=== PATIENT | male | born 1965 | race Caucasian/White ===

== ENCOUNTER 2018-02-14 12:58 | Inpatient (IN) | payer OTHER ==
[2018-02-14] MEDS ORDERED: IOPAMIDOL (ISOVUE-300) 100 ML BTL ONE (13:08)
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
[2018-02-14] MEDS ORDERED: NS 1,000 ML IV ONE (13:20)
[2018-02-14] MEDS ORDERED: HYDROmorphONE/DILAUDID 2 MG/ML INJ IVP ONE ×2 (13:20→15:45)
[2018-02-14 13:46] LABS: CREATINE KINASE 525 IU/L (0-224)
[2018-02-14] MEDS ORDERED: HYDROmorphONE/DILAUDID 1 MG/ML INJ ONE ×2 (13:46→15:45)
[2018-02-14 14:23] LABS: INR > 16.20 (0.83-1.16); PROTIME(PATIENT) > 120.0 SEC (12.0-15.0)
[2018-02-14] MEDS ORDERED: NALOXONE HCL 0.4 MG/ML INJ IVP PRN (14:32)
[2018-02-14] MEDS ORDERED: ONDANSETRON 4 MG/2 ML VIAL IVP PRN (14:32)
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
[2018-02-14 14:55] LABS: PLATELET COUNT 306 10^3/uL (150-400)
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
[2018-02-14 17:03] LABS: INR 1.05 (0.83-1.16); PROTIME(PATIENT) 13.9 SEC (12.0-15.0)
[2018-02-14] MEDS: HYDROmorphONE/DILAUDID 1 MG/ML INJ IVP PRN ×2 (18:17→21:55)
[2018-02-14 19:37] LABS: PLATELET COUNT 258 10^3/uL (150-400)
--- NOTE | 2018-02-14 19:58 | CPEKG ---
Test Reason : OPEN Blood Pressure : / mmHG Vent. Rate : 107 BPM Atrial Rate : 107 BPM P-R Int : 137 ms QRS Dur : 087 ms QT Int : 358 ms P-R-T Axes : 045 034 034 degrees QTc Int : 478 ms Sinus tachycardia Low voltage, extremity leads Borderline prolonged QT interval Confirmed by Jensie Salcedo ([id number]) on 02/14/2018 7:58:26 PM Referred By: Confirmed By:Jenise Salcedo
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
--- NOTE | 2018-02-14 23:17 | TRAUMAPN ---
Trauma Progress Note Assessment/Plan: Repeat CBC chemistry some troponin demonstrated elevation in his troponin from initial evaluation at presentation of 0.023 to 0.122. Will get Medicine consult to evaluate or determine if cardiology consult is necessary. EKG reviewed from before shows no myocardial injury. This may be a result blunt chest trauma but is worthy of investigation. Objective: Vital Signs Temp Pulse Resp BP Pulse Ox 37.5 C 111 H 19 106/77 94 02/14/18 20:00 02/14/18 23:00 02/14/18 23:00 02/14/18 23:00 02/14/18 23:00 Laboratory Results 02/14/18 19:15 02/14/18 19:15 02/13/18 02/14/18 02/15/18 05:59 05:59 05:59 Intake Total 1312 Output Total 275 Balance 1037 PT 13.9 SEC (12.0-15.0) 02/14/18 16:40 INR 1.05 (0.83-1.16) 02/14/18 16:40
[2018-02-15] MEDS: HYDROmorphONE/DILAUDID 1 MG/ML INJ IVP PRN ×7 (00:10→20:10)
[2018-02-15] MEDS: LR 1,000 ML IV SCH ×3 (00:10→20:10)
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
--- NOTE | 2018-02-15 09:39 | HOSPPROG ---
Hospitalist Progress Note Assessment/Plan: Elevated troponin - peaked at 0.1, now trending down. Doubt ACS. Pt is CP free. His only cardiac risk factor is hyperlipidemia. No htn, tobacco use, DM or family hx of PHD. Suspect strain vs elevation 2/2 trauma. No need for further cardiac testing inpt. -outpt risk stratification could be considered Multiple traumatic fractures - Care per trauma team, will require surgery for pelvic fracture Minimal parietal SAH - No neurologic deficits. -NSG following Full code Dispo - cont inpt Medicine will continue to follow Subjective: Pt doing ok, pain is controlled. Denies bailey, vision changes, nausea , vomiting, chest pain or SOB. Some pelvic pain if he moves. Objective: Vital Signs Temp Pulse Resp BP Pulse Ox 37.3 C 100 19 127/83 H 94 02/15/18 07:00 02/15/18 09:00 02/15/18 09:00 02/15/18 09:00 02/15/18 09:00 Laboratory Results 02/15/18 04:15 02/15/18 04:15 02/14/18 02/15/18 02/16/18 05:59 05:59 05:59 Intake Total 3468 Output Total 940 Balance 2528 PT 13.9 SEC (12.0-15.0) 02/14/18 16:40 INR 1.05 (0.83-1.16) 02/14/18 16:40 - Physical Exam Constitutional: no apparent distress Eyes: PERRL Ears, Nose, Mouth, Throat: moist mucous membranes Cardiovascular: regular rate and rhythym Respiratory: no respiratory distress Gastrointestinal: normoactive bowel sounds, soft, non-tender abdomen Skin: warm Neurologic: AAOx3 Psychiatric: interacting appropriately ICD10 Worksheet Patient Problems: Problems Problem Status Onset Elevated troponin Acute Laceration of scalp Acute Pelvic fracture Acute Subarachnoid bleed Acute
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
[2018-02-15] MEDS ORDERED: RANITIDINE HCL 150 MG/10 ML UDCUP PO SCH (10:45)
[2018-02-15] MEDS ORDERED: RANITIDINE 50 MG/2 ML VIAL IVP SCH (10:45)
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
[2018-02-15] MEDS: FAMOTIDINE 20 MG/NACL 50 ML IV SCH ×2 (12:54→20:10)
--- NOTE | 2018-02-15 16:43 | PDCONSULT ---
Shoe Polisher Note: Patient's chart reviewed, and plan of care discussed with Dr. Carter and RN. At this time, there is no plan for a scheduled surgery on Friday. Dr. Carter will coordinate surgical planning for later in the week. Jerry
[2018-02-15] MEDS: ACETAMINOPHEN 325 MG TAB PO PRN (20:09)
[2018-02-16] MEDS: ACETAMINOPHEN 325 MG TAB PO PRN ×2 (03:49→20:12)
[2018-02-16] MEDS: LR 1,000 ML IV SCH ×2 (05:42→13:50)
[2018-02-16] MEDS ORDERED: MAGNESIUM HYDROXIDE 30 ML UDCUP PO PRN (08:06)
[2018-02-16] MEDS ORDERED: POLYETHYLENE GLYCOL 3350 17 GM PKT PO PRN (08:06)
[2018-02-16] MEDS ORDERED: LACTULOSE 20 GM/30 ML UDCUP PO PRN (08:06)
[2018-02-16] MEDS: FAMOTIDINE 20 MG/NACL 50 ML IV SCH ×2 (08:52→20:14)
[2018-02-16] MEDS: SENNOSIDES/DOCUSATE SODIUM TAB PO SCH ×2 (08:52→20:12)
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
[2018-02-16] MEDS ORDERED: NALOXONE HCL 0.4 MG/ML INJ IVP PRN (17:01)
[2018-02-16] MEDS: morphINE PCA 30 MG/30 ML PCA IV PRN (17:05)
--- NOTE | 2018-02-17 08:19 | SOAPPROG ---
SOAP Progress Note Assessment/Plan: Assessment: pt with complex pelvic fx/ afebrile/ vs stable/ please refer to my PAs note today dr burleson to see for orif Plan:pelvic ORIF on friday02/17/18 08:17 Objective: Vital Signs Temp Pulse Resp BP Pulse Ox 37.1 C 105 H 14 143/82 H 95 02/17/18 00:00 02/17/18 06:00 02/17/18 06:00 02/17/18 06:00 02/17/18 06:00 Laboratory Results 02/16/18 18:35 02/15/18 04:15 02/16/18 02/17/18 02/18/18 05:59 05:59 05:59 Intake Total 3489 3427 Output Total 1650 3200 Balance 1839 227 PT 13.9 SEC (12.0-15.0) 02/14/18 16:40 INR 1.05 (0.83-1.16) 02/14/18 16:40 ICD10 Worksheet Patient Problems: Problems Problem Status Onset Elevated troponin Acute Laceration of scalp Acute Pelvic fracture Acute Subarachnoid bleed Acute
[2018-02-17] MEDS: FAMOTIDINE 20 MG/NACL 50 ML IV SCH ×2 (08:43→20:49)
[2018-02-17] MEDS: SENNOSIDES/DOCUSATE SODIUM TAB PO SCH ×2 (08:44→20:49)
[2018-02-17] MEDS ORDERED: MAGNESIUM CITRATE 300 ML BOTTLE PO ONE (09:56)
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
[2018-02-17 10:02] LABS: PLATELET COUNT 169 10^3/uL (150-400)
[2018-02-17] MEDS ORDERED: METHYLNALTREXONE BROMIDE 12 MG/0.6 ML INJ SC ONE (10:08)
[2018-02-17 10:29] LABS: INR 1.1 (0.83-1.16); PROTIME(PATIENT) 14.4 SEC (12.0-15.0)
--- NOTE | 2018-02-17 13:08 | SOAPPROG ---
WILSON Progress Note Assessment/Plan: Assessment: Plan: Subjective: stattes he has pain when movinh leg or rolling grossly NVI in foot compression test not performed CT reveals anterior fractures outside the acetabulum but posterior fractures are dsiplaced and need to be fixed plan for ORIF of posterior fractures tomorrow NPO after MN Objective: Vital Signs Temp Pulse Resp BP Pulse Ox 36.8 C 103 H 17 130/92 H 97 02/17/18 12:00 02/17/18 12:00 02/17/18 12:00 02/17/18 12:00 02/17/18 12:00 Laboratory Results 02/17/18 09:55 02/17/18 09:55 02/16/18 02/17/18 02/18/18 05:59 05:59 05:59 Intake Total 3489 3427 Output Total 1650 3200 Balance 1839 227 PT 14.4 SEC (12.0-15.0) 02/17/18 09:55 INR 1.10 (0.83-1.16) 02/17/18 09:55 ICD10 Worksheet Patient Problems: Problems Problem Status Onset Elevated troponin Acute Laceration of scalp Acute Pelvic fracture Acute Subarachnoid bleed Acute
--- NOTE | 2018-02-17 13:10 | GPROG ---
DATE OF SERVICE: 02/17/2018 I saw the patient today on my afternoon rounds really just to touch base to make sure the plan was in place. He is actually being visited by Dr. Margarita Carter, who is explaining the surgery and expected po stop course at length with the patient. At this point, I will personally sign off and defer all care to Dr. Margarita Carter and his care team. If I can help in any way, please do not hesitate to contact me. /[id number]/MODL
--- NOTE | 2018-02-17 13:33 | TRAUMAPN ---
Trauma Progress Note Assessment/Plan: PAD#3 02/17/2018 Assessment: C/o bloating and no stool yet but otherwise set for surgery Significant time spent with family answering questions Plan: oral and rectal meds to facilitate bowel movement planned. Subjective: " I can't move my bowels" Objective: Vital Signs Temp Pulse Resp BP Pulse Ox 36.8 C 103 H 17 130/92 H 97 02/17/18 12:00 02/17/18 12:00 02/17/18 12:00 02/17/18 12:00 02/17/18 12:00 Laboratory Results 02/17/18 09:55 02/17/18 09:55 02/16/18 02/17/18 02/18/18 05:59 05:59 05:59 Intake Total 3489 3427 Output Total 1650 3200 Balance 1839 227 PT 14.4 SEC (12.0-15.0) 02/17/18 09:55 INR 1.10 (0.83-1.16) 02/17/18 09:55 Physical Exam - Physical Exam General Appearance: WD/WN, alert, mild distress Neck: non-tender, full range of motion, supple Respiratory: chest non-tender, lungs clear, normal breath sounds Cardiac/Chest: regular rate, rhythm Abdomen: normal bowel sounds, distended Male Genitalia: deferred Rectal: deferred Skin: normal color, warm/dry Neuro/Psych: alert, normal mood/affect, oriented x 3 Time Spent w/Patient (minutes): 35
[2018-02-17] MEDS: BISACODYL 10 MG SUPP PR PRN (14:07)
[2018-02-17] MEDS: LR 1,000 ML IV SCH (20:49)
[2018-02-18] MEDS: BISACODYL 10 MG SUPP PR PRN (00:15)
[2018-02-18] MEDS: morphINE PCA 30 MG/30 ML PCA IV PRN ×2 (01:30→22:21)
[2018-02-18] MEDS: LR 1,000 ML IV SCH ×2 (05:36→19:56)
[2018-02-18] MEDS ORDERED: BUPIVACAINE/EPI 0.5% 30 ML SDV ONE (07:44)
[2018-02-18] MEDS ORDERED: BACITRACIN 50,000 UNITS/10 ML SYR IRR ONE (07:44)
[2018-02-18] MEDS ORDERED: POLYMYXIN B SULFATE 500,000 UNIT/10 ML SYR IRR ONE (07:44)
[2018-02-18] MEDS: FAMOTIDINE 20 MG/NACL 50 ML IV SCH ×2 (08:16→19:59)
[2018-02-18] MEDS: SENNOSIDES/DOCUSATE SODIUM TAB PO SCH ×2 (08:27→19:59)
[2018-02-18 08:31] LABS: INR 1.12 (0.83-1.16); PROTIME(PATIENT) 14.6 SEC (12.0-15.0)
[2018-02-18] MEDS ORDERED: PROPOFOL/EMULSION 500 MG/50 ML BOTTLE IV ONE ×2 (10:21→12:47)
[2018-02-18] MEDS ORDERED: DEXAMETHASONE 4 MG/ML VIAL ONE (10:24)
[2018-02-18] MEDS ORDERED: THROMBIN (BOVINE) 5,000 UNIT VIAL TP ONE (10:38)
[2018-02-18] MEDS ORDERED: CALCIUM CHLORIDE 1 GM/10 ML INJ ONE (10:38)
[2018-02-18] MEDS ORDERED: ALBUMIN 5% 250 ML BOTTLE IV ONE (11:18)
[2018-02-18] MEDS ORDERED: POTASSIUM Cl (KCl) 10 MEQ/100 ML BAG IV ONE (11:25)
[2018-02-18] MEDS ORDERED: CLINDAMYCIN 900 MG/DEXTROSE 50 ML IV ONE (11:30)
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
[2018-02-18] MEDS ORDERED: PHENYLEPHRINE HCL 100 MCG/ML SYR ONE (12:51)
[2018-02-18] MEDS ORDERED: ROCURONIUM 100 MG/10 ML VIAL ONE (12:51)
[2018-02-18] MEDS ORDERED: HYDROmorphONE/DILAUDID 2 MG/ML INJ IVP PRN (14:16)
[2018-02-18] MEDS ORDERED: PROMETHAZINE HCL 25 MG/ML INJ IVP PRN (14:16)
[2018-02-18] MEDS ORDERED: ONDANSETRON 4 MG/2 ML VIAL IVP PRN (14:16)
[2018-02-18] MEDS ORDERED: fentaNYL 100 MCG/2 ML INJ IVP PRN (14:16)
[2018-02-18] MEDS ORDERED: NALOXONE HCL 0.4 MG/ML INJ IVP PRN (14:16)
[2018-02-18] MEDS ORDERED: ONDANSETRON 4 MG/2 ML VIAL ONE (14:17)
[2018-02-18] MEDS ORDERED: SUGAMMADEX SODIUM 200 MG/2 ML VIAL IVP ONE (14:17)
[2018-02-18] MEDS ORDERED: OXYCODONE/APAP 5/325 TAB PO PRN (15:07)
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
[2018-02-18] MEDS ORDERED: PROTOCOL POTASSIUM 1 DOSE MISC PRN (17:08)
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
[2018-02-18] MEDS ORDERED: HEPARIN 10,000 UNIT/10 ML MDV (1,000 UNIT/ML) IVP PRN (17:41)
--- NOTE | 2018-02-18 17:42 | TRAUMAPN ---
Trauma Progress Note Assessment/Plan: PAD#3 02/17/2018 Assessment: C/o bloating and no stool yet but otherwise set for surgery Significant time spent with family answering questions Plan: oral and rectal meds to facilitate bowel movement planned. PAD#4 POD#0 02/18/2018 Assessment:' Patient did well with surgery. A surveillance duplex scan shows bilateral DVT. Plan: CTA of chest to r/o asymptomatic PE CTV of abdomen and pelvis to evaluate extent of clot and size of Cava in case filter becomes necessary. will start heparin bolus/drip Subjective: no complaints post op Objective: Vital Signs Temp Pulse Resp BP Pulse Ox 37.1 C 118 H 20 131/81 H 100 02/18/18 15:56 02/18/18 17:07 02/18/18 17:07 02/18/18 17:07 02/18/18 17:07 Laboratory Results 02/18/18 16:10 02/18/18 08:10 02/17/18 02/18/18 02/19/18 05:59 05:59 05:59 Intake Total 3427 3952 2686 Output Total 3200 1250 2350 Balance 227 2702 336 PT 14.6 SEC (12.0-15.0) 02/18/18 08:10 INR 1.12 (0.83-1.16) 02/18/18 08:10 Physical Exam - Physical Exam General Appearance: WD/WN, alert, no apparent distress Respiratory: chest non-tender, lungs clear, normal breath sounds, other (no pleuritic chest pain) Cardiac/Chest: regular rate, rhythm Abdomen: normal bowel sounds, non-tender, soft, distended Male Genitalia: deferred Rectal: deferred Back: Normal inspection Skin: normal color, warm/dry Neuro/Psych: no motor/sensory deficits, alert, normal mood/affect, oriented x 3 Time Spent w/Patient (minutes): 25
[2018-02-18] MEDS ORDERED: HEPARIN 10,000 UNIT/10 ML MDV (1,000 UNIT/ML) IVP ONE (17:46)
[2018-02-18] MEDS ORDERED: IOPAMIDOL (ISOVUE 370) 100 ML BTL IV ONE (18:01)
[2018-02-18] MEDS: HEPARIN/DEXTROSE 500 ML IV SCH (18:02)
[2018-02-18 18:12] LABS: PLATELET COUNT 149 10^3/uL (150-400)
[2018-02-18 18:34] LABS: INR 1.28 (0.83-1.16); PROTIME(PATIENT) 16.2 SEC (12.0-15.0)
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
[2018-02-18] MEDS: POTASSIUM Cl (KCl) 50 ML IV SCH ×3 (21:17→22:21)
[2018-02-18] MEDS: CLINDAMYCIN 600 MG/DEXTROSE 50 ML IV SCH (21:30)
[2018-02-19] MEDS: BISACODYL 10 MG SUPP PR PRN (03:24)
[2018-02-19] MEDS: LR 1,000 ML IV SCH ×2 (03:25→04:27)
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
[2018-02-19] MEDS: CLINDAMYCIN 600 MG/DEXTROSE 50 ML IV SCH ×2 (05:05→14:05)
[2018-02-19] MEDS: HEPARIN/DEXTROSE 500 ML IV SCH ×2 (05:08→09:15)
[2018-02-19 06:27] LABS: PLATELET COUNT 169 10^3/uL (150-400)
[2018-02-19] MEDS ORDERED: METHYLNALTREXONE BROMIDE 12 MG/0.6 ML INJ SC SCH (09:00)
[2018-02-19] MEDS ORDERED: RIVAROXABAN 10 MG TAB PO SCH (09:00)
[2018-02-19] MEDS: POTASSIUM Cl (KCl) 50 ML IV SCH ×5 (09:25→21:14)
--- NOTE | 2018-02-19 09:26 | TRAUMAPN ---
Trauma Progress Note Assessment/Plan: PAD#3 02/17/2018 Assessment: C/o bloating and no stool yet but otherwise set for surgery Significant time spent with family answering questions Plan: oral and rectal meds to facilitate bowel movement planned. PAD#4 POD#0 02/18/2018 Assessment:' Patient did well with surgery. A surveillance duplex scan shows bilateral DVT. Plan: CTA of chest to r/o asymptomatic PE CTV of abdomen and pelvis to evaluate extent of clot and size of Cava in case filter becomes necessary. will start heparin bolus/drip PAD#5 POD#1 02/19/2018 Assessment: DVT/PE - Therapeutic on Heparin drip. No neurologic sequela. Oxygen requirements stable at 2lpm. hct 21.3, tachycardia @ 112 Has bilateral small PE ( most in RUL), DVT below inguinal ligament bilat, Cava acceptable size if filter becomes necessary Will slowly mobilize while clot incorporates Abdominal distention - Had enemas last PM. Still tympanitic/distended. Suspect aerophagia with narcotic bowel. need to r/o hypothyroidism ( doubt) Plan: Follow HCT and transfuse if < 20, If complications occur ( increased oxygen requirements, neurologic changes, excessive surgical site/fracture site bleeding ) will consider filter Will check TSH, will add simethicone, will check abd xray, will add mu agonist. Subjective: "I'm bloated and cant pass gas" " its uncomfortable below my left knee on the (medial) side" Objective: Vital Signs Temp Pulse Resp BP Pulse Ox 37.1 C 114 H 20 119/71 99 02/18/18 15:56 02/19/18 06:00 02/19/18 06:00 02/19/18 06:00 02/19/18 06:00 Laboratory Results 02/19/18 06:00 02/19/18 06:00 02/18/18 02/19/18 02/20/18 05:59 05:59 05:59 Intake Total 3952 5518 Output Total 1250 4950 Balance 2702 568 PT 16.2 SEC (12.0-15.0) H 02/18/18 17:48 INR 1.28 (0.83-1.16) H 02/18/18 17:48 Physical Exam - Physical Exam General Appearance: WD/WN, alert, moderate distress Neck: non-tender, full range of motion Respiratory: chest non-tender, lungs clear, normal breath sounds (limited by distended abdomen) Cardiac/Chest: regular rate, rhythm, tachycardia Abdomen: distended, other (hypoactive bowel sounds) Male Genitalia: deferred Rectal: deferred Skin: normal color, warm/dry Extremities: other (c/o pain below/medial left knee) Neuro/Psych: no motor/sensory deficits, alert, normal mood/affect, oriented x 3 Time Spent w/Patient (minutes): 35
[2018-02-19] MEDS ORDERED: FAMOTIDINE 20 MG TAB PO SCH (09:45)
[2018-02-19] MEDS: SENNOSIDES/DOCUSATE SODIUM TAB PO SCH ×2 (09:54→21:30)
[2018-02-19] MEDS: SIMETHICONE 80 MG TAB CHEW PO SCH ×4 (09:54→21:13)
[2018-02-19] MEDS: traMADol 50 MG TAB PO PRN ×2 (09:59→19:37)
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
[2018-02-19] MEDS ORDERED: LIDOCAINE 2% VISCOUS 15 ML UDCUP ONE (11:40)
[2018-02-19] MEDS ORDERED: LIDOCAINE 2% JELLY 20 ML (UROJECT) ONE (11:40)
[2018-02-19] MEDS: FAMOTIDINE 20 MG/NACL 50 ML IV SCH (11:49)
[2018-02-19] MEDS: NS W/ 20 KCl/L 1,000 ML IV SCH (12:43)
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
--- NOTE | 2018-02-19 13:55 | POSTANESTH ---
Post Anesthetic Evaluation Cardiovascular Status: Normal, Stable Respiratory Status: Tx Decrease in SpO2 Level of Consciousness/Mental Status: Can Participate in Eval Pain Control: Adequate, Prn Tx Ordered Nausea/Vomiting Control: Adequate, Prn Tx Ordered Complications Possibly Related to Anesthesia: None Noted
[2018-02-19] MEDS: ACETAMINOPHEN 500 MG TAB PO SCH ×2 (14:05→21:13)
--- NOTE | 2018-02-19 16:04 | ASMTCMCOM ---
CM Note CM Note Notes: Patient went for surgery and needs bedrest before therapies can work with him. CM will follow. Date Signed: 02/19/2018 04:04 PM Electronically Signed By:Shahrzad Davies LCSW
[2018-02-20] MEDS: HEPARIN/DEXTROSE 500 ML IV SCH ×2 (00:18→14:23)
[2018-02-20] MEDS: NS W/ 20 KCl/L 1,000 ML IV SCH (02:45)
[2018-02-20] MEDS: traMADol 50 MG TAB PO PRN ×3 (03:19→19:29)
[2018-02-20] MEDS: ACETAMINOPHEN 500 MG TAB PO SCH ×3 (06:20→22:22)
[2018-02-20] MEDS: SIMETHICONE 80 MG TAB CHEW PO SCH ×5 (06:20→22:22)
[2018-02-20] MEDS: POTASSIUM Cl (KCl) 50 ML IV SCH ×3 (07:15→10:35)
[2018-02-20] MEDS: SENNOSIDES/DOCUSATE SODIUM TAB PO SCH ×2 (08:47→19:29)
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
--- NOTE | 2018-02-20 11:17 | ASMTCMCOM ---
CM Note CM Note Notes: Patient will work with therapies today. Awaiting recommendations. CM will follow. Date Signed: 02/20/2018 11:17 AM Electronically Signed By:Shahrzad Davies LCSW
[2018-02-20] MEDS: PANTOPRAZOLE SODIUM 40 MG TAB PO SCH (12:32)
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
[2018-02-20] MEDS ORDERED: POTASSIUM CL 10 MEQ TAB PO ONE (20:44)
[2018-02-21] MEDS: traMADol 50 MG TAB PO PRN ×2 (01:09→18:02)
[2018-02-21] MEDS: HEPARIN/DEXTROSE 500 ML IV SCH (05:11)
[2018-02-21] MEDS: ACETAMINOPHEN 500 MG TAB PO SCH ×3 (05:11→22:35)
[2018-02-21] MEDS: SIMETHICONE 80 MG TAB CHEW PO SCH (05:12)
[2018-02-21 05:27] LABS: PLATELET COUNT 227 10^3/uL (150-400)
--- NOTE | 2018-02-21 09:10 | TRAUMAPN ---
Trauma Progress Note Assessment/Plan: PAD#3 02/17/2018 Assessment: C/o bloating and no stool yet but otherwise set for surgery Significant time spent with family answering questions Plan: oral and rectal meds to facilitate bowel movement planned. PAD#4 POD#0 02/18/2018 Assessment:' Patient did well with surgery. A surveillance duplex scan shows bilateral DVT. Plan: CTA of chest to r/o asymptomatic PE CTV of abdomen and pelvis to evaluate extent of clot and size of Cava in case filter becomes necessary. will start heparin bolus/drip PAD#5 POD#1 02/19/2018 Assessment: DVT/PE - Therapeutic on Heparin drip. No neurologic sequela. Oxygen requirements stable at 2lpm. hct 21.3, tachycardia @ 112 Has bilateral small PE ( most in RUL), DVT below inguinal ligament bilat, Cava acceptable size if filter becomes necessary Will slowly mobilize while clot incorporates Abdominal distention - Had enemas last PM. Still tympanitic/distended. Suspect aerophagia with narcotic bowel. need to r/o hypothyroidism ( doubt) Plan: Follow HCT and transfuse if < 20, If complications occur ( increased oxygen requirements, neurologic changes, excessive surgical site/fracture site bleeding ) will consider filter Will check TSH, will add simethicone, will check abd xray, will add mu agonist. PAD#7 POD#3 02/21/2018 Assessment: DVT/PE - Therapeutic on Heparin drip. Hct improving. No neurologic sequela. Has tolerated mobilization Nutrition/Abdominal distention - Still presume that there is an aerophagic component. Passing flatus and stool. eating Volume status - weight 92Kg will follow Activity - improving with PT Plan: continue to follow Hct try to transition to peripheral IV from central. Subjective: I'm feeling bloated Objective: Vital Signs Temp Pulse Resp BP Pulse Ox 37.0 C 96 21 H 138/88 H 94 02/21/18 07:54 02/21/18 07:54 02/21/18 07:54 02/21/18 07:54 02/21/18 07:54 Laboratory Results 02/21/18 05:15 02/21/18 05:15 02/20/18 02/21/18 02/22/18 05:59 05:59 05:59 Intake Total 3360 3262 Output Total 975 900 Balance 2385 2362 PT 16.2 SEC (12.0-15.0) H 02/18/18 17:48 INR 1.28 (0.83-1.16) H 02/18/18 17:48 Physical Exam - Physical Exam General Appearance: WD/WN, alert, moderate distress Neck: non-tender, full range of motion Respiratory: lungs clear, normal breath sounds, other (still on 2lpm oxygen) Cardiac/Chest: regular rate, rhythm Abdomen: normal bowel sounds, non-tender, soft, distended Male Genitalia: deferred Rectal: deferred Back: Normal inspection Skin: normal color, warm/dry Extremities: normal range of motion, non-tender (mild tenderness medially on left lower leg below knee (no change, presume secondary to phlebitis)) Neuro/Psych: no motor/sensory deficits, alert, normal mood/affect, oriented x 3 Time Spent w/Patient (minutes): 25
[2018-02-21] MEDS: PANTOPRAZOLE SODIUM 40 MG TAB PO SCH (11:32)
[2018-02-21] MEDS: RIVAROXABAN 15 MG TAB PO SCH ×2 (11:32→22:35)
[2018-02-21] MEDS: SENNOSIDES/DOCUSATE SODIUM TAB PO SCH ×2 (11:44→21:27)
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
--- NOTE | 2018-02-21 15:14 | SOAPPROG ---
SOAP Progress Note Assessment/Plan: Assessment: Plan: Subjective: states he still has pain and feels bloated foot NVI OOB to chair ecchymosis at l buttock increase calcium intake when bowels ready avoid NSAIDs Objective: Vital Signs Temp Pulse Resp BP Pulse Ox 37.3 C 108 H 19 106/67 94 02/21/18 11:57 02/21/18 11:57 02/21/18 11:57 02/21/18 11:57 02/21/18 11:57 Laboratory Results 02/21/18 05:15 02/21/18 05:15 02/20/18 02/21/18 02/22/18 05:59 05:59 05:59 Intake Total 3360 3262 185 Output Total 975 900 300 Balance 2385 2362 -115 PT 16.2 SEC (12.0-15.0) H 02/18/18 17:48 INR 1.28 (0.83-1.16) H 02/18/18 17:48 ICD10 Worksheet Patient Problems: Problems Problem Status Onset Elevated troponin Acute Laceration of scalp Acute Pelvic fracture Acute Subarachnoid bleed Acute
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
[2018-02-22] MEDS: traMADol 50 MG TAB PO PRN ×3 (02:11→19:59)
[2018-02-22 04:25] LABS: PLATELET COUNT 310 10^3/uL (150-400)
[2018-02-22] MEDS: ACETAMINOPHEN 500 MG TAB PO SCH ×3 (07:47→22:50)
[2018-02-22] MEDS: HYDROmorphONE/DILAUDID 1 MG/ML INJ IVP PRN (07:48)
[2018-02-22] MEDS: PANTOPRAZOLE SODIUM 40 MG TAB PO SCH (09:40)
[2018-02-22] MEDS: SENNOSIDES/DOCUSATE SODIUM TAB PO SCH ×2 (09:40→19:59)
[2018-02-22] MEDS: RIVAROXABAN 15 MG TAB PO SCH ×2 (09:41→18:11)
--- NOTE | 2018-02-22 09:52 | TRAUMAPN ---
Trauma Progress Note Assessment/Plan: PAD#3 02/17/2018 Assessment: C/o bloating and no stool yet but otherwise set for surgery Significant time spent with family answering questions Plan: oral and rectal meds to facilitate bowel movement planned. PAD#4 POD#0 02/18/2018 Assessment:' Patient did well with surgery. A surveillance duplex scan shows bilateral DVT. Plan: CTA of chest to r/o asymptomatic PE CTV of abdomen and pelvis to evaluate extent of clot and size of Cava in case filter becomes necessary. will start heparin bolus/drip PAD#5 POD#1 02/19/2018 Assessment: DVT/PE - Therapeutic on Heparin drip. No neurologic sequela. Oxygen requirements stable at 2lpm. hct 21.3, tachycardia @ 112 Has bilateral small PE ( most in RUL), DVT below inguinal ligament bilat, Cava acceptable size if filter becomes necessary Will slowly mobilize while clot incorporates Abdominal distention - Had enemas last PM. Still tympanitic/distended. Suspect aerophagia with narcotic bowel. need to r/o hypothyroidism ( doubt) Plan: Follow HCT and transfuse if < 20, If complications occur ( increased oxygen requirements, neurologic changes, excessive surgical site/fracture site bleeding ) will consider filter Will check TSH, will add simethicone, will check abd xray, will add mu agonist. PAD#7 POD#3 02/21/2018 Assessment: DVT/PE - Therapeutic on Heparin drip. Hct improving. No neurologic sequela. Has tolerated mobilization Nutrition/Abdominal distention - Still presume that there is an aerophagic component. Passing flatus and stool. eating Volume status - weight 92Kg will follow Activity - improving with PT Plan: continue to follow Hct try to transition to peripheral IV from central. PAD#8 POD#4 02/22/2018 Assessment: DVT/PE - on Xarelto. using heat on left medial proximal lower leg at site of presumed phlebitis. No neurologic sequela. HCT 21 Nutrition/Distention - Has a large stool yesterday. bloated again today ( aerophagia) Volume status - weight trending up (.6kg) but good diuresis. may need to consider diuretic. Diet advanced as tolerated. Activity - improving Plan: Working on rehab options Subjective: "I'm bloating again" Objective: Vital Signs Temp Pulse Resp BP Pulse Ox 37.2 C 98 20 135/87 H 18 L 02/22/18 08:00 02/22/18 08:00 02/22/18 08:00 02/22/18 08:00 02/22/18 08:00 Laboratory Results 02/22/18 04:10 02/22/18 04:10 02/21/18 02/22/18 02/23/18 05:59 05:59 05:59 Intake Total 3262 1568 Output Total 900 1350 Balance 2362 218 PT 16.2 SEC (12.0-15.0) H 02/18/18 17:48 INR 1.28 (0.83-1.16) H 02/18/18 17:48 Physical Exam - Physical Exam General Appearance: WD/WN, alert, mild distress Neck: full range of motion Respiratory: chest non-tender, lungs clear, normal breath sounds Cardiac/Chest: regular rate, rhythm Abdomen: normal bowel sounds, non-tender, distended Male Genitalia: deferred Rectal: deferred Back: Normal inspection Skin: normal color, warm/dry Neuro/Psych: no motor/sensory deficits, alert, normal mood/affect, oriented x 3 Time Spent w/Patient (minutes): 25
[2018-02-22] MEDS: MULTIVITAMINS W-MINERALS 1 EACH TAB PO SCH (12:05)
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
[2018-02-23] MEDS: traMADol 50 MG TAB PO PRN ×2 (01:27→13:25)
[2018-02-23] MEDS: ACETAMINOPHEN 500 MG TAB PO SCH ×3 (06:18→21:12)
--- NOTE | 2018-02-23 09:10 | ASMTCMCOM ---
CM Note CM Note Notes: Spoke to patient about Acute Rehab. He lives in [place] and would like me to send referrals to [facility] and [facility]. Referrals have been sent. Date Signed: 02/23/2018 09:07 AM Electronically Signed By:Selena Felder LCSW
[2018-02-23] MEDS: FERROUS SULFATE 325 MG TAB PO SCH (09:49)
[2018-02-23] MEDS: MULTIVITAMINS W-MINERALS 1 EACH TAB PO SCH (09:49)
[2018-02-23] MEDS: RIVAROXABAN 15 MG TAB PO SCH ×2 (09:49→18:42)
[2018-02-23] MEDS: SENNOSIDES/DOCUSATE SODIUM TAB PO SCH ×2 (09:49→21:14)
[2018-02-23] MEDS: PANTOPRAZOLE SODIUM 40 MG TAB PO SCH (09:49)
--- NOTE | 2018-02-23 09:53 | TRAUMAPN ---
Trauma Progress Note Assessment/Plan: PAD#3 02/17/2018 Assessment: C/o bloating and no stool yet but otherwise set for surgery Significant time spent with family answering questions Plan: oral and rectal meds to facilitate bowel movement planned. PAD#4 POD#0 02/18/2018 Assessment:' Patient did well with surgery. A surveillance duplex scan shows bilateral DVT. Plan: CTA of chest to r/o asymptomatic PE CTV of abdomen and pelvis to evaluate extent of clot and size of Cava in case filter becomes necessary. will start heparin bolus/drip PAD#5 POD#1 02/19/2018 Assessment: DVT/PE - Therapeutic on Heparin drip. No neurologic sequela. Oxygen requirements stable at 2lpm. hct 21.3, tachycardia @ 112 Has bilateral small PE ( most in RUL), DVT below inguinal ligament bilat, Cava acceptable size if filter becomes necessary Will slowly mobilize while clot incorporates Abdominal distention - Had enemas last PM. Still tympanitic/distended. Suspect aerophagia with narcotic bowel. need to r/o hypothyroidism ( doubt) Plan: Follow HCT and transfuse if < 20, If complications occur ( increased oxygen requirements, neurologic changes, excessive surgical site/fracture site bleeding ) will consider filter Will check TSH, will add simethicone, will check abd xray, will add mu agonist. PAD#7 POD#3 02/21/2018 Assessment: DVT/PE - Therapeutic on Heparin drip. Hct improving. No neurologic sequela. Has tolerated mobilization Nutrition/Abdominal distention - Still presume that there is an aerophagic component. Passing flatus and stool. eating Volume status - weight 92Kg will follow Activity - improving with PT Plan: continue to follow Hct try to transition to peripheral IV from central. PAD#8 POD#4 02/22/2018 Assessment: DVT/PE - on Xarelto. using heat on left medial proximal lower leg at site of presumed phlebitis. No neurologic sequela. HCT 21 Nutrition/Distention - Has a large stool yesterday. bloated again today ( aerophagia) Volume status - weight trending up (.6kg) but good diuresis. may need to consider diuretic. Diet advanced as tolerated. Activity - improving Plan: Working on rehab options 02/23/2018 PAD#9 POD#5 02/23/2018 Assessment: Doing well. abdominal distention less of an issue Notes swelling of LLE, presume due to DVT Plan: Elevate LLE when possible Awaiting rehab placement Subjective: My left lower leg is more swollen Objective: Vital Signs Temp Pulse Resp BP Pulse Ox 37.1 C 98 26 H 135/84 H 96 02/23/18 07:37 02/23/18 07:37 02/23/18 07:37 02/23/18 07:37 02/23/18 07:37 Microbiology 02/17/18 18:15 Blood Culture - Final Blood Laboratory Results 02/23/18 04:58 02/22/18 04:10 02/22/18 02/23/18 02/24/18 05:59 05:59 05:59 Intake Total 1568 900 Output Total 1350 1200 450 Balance 218 -300 -450 PT 16.2 SEC (12.0-15.0) H 02/18/18 17:48 INR 1.28 (0.83-1.16) H 02/18/18 17:48 Physical Exam - Physical Exam General Appearance: WD/WN, alert, no apparent distress Respiratory: chest non-tender, lungs clear, normal breath sounds Cardiac/Chest: regular rate, rhythm Abdomen: normal bowel sounds, non-tender, soft Male Genitalia: deferred Rectal: deferred Back: Normal inspection Skin: normal color, warm/dry Neuro/Psych: no motor/sensory deficits, alert, normal mood/affect, oriented x 3 Time Spent w/Patient (minutes): 15
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
[2018-02-24] MEDS: ACETAMINOPHEN 500 MG TAB PO SCH (05:08)
[2018-02-24] MEDS: MULTIVITAMINS W-MINERALS 1 EACH TAB PO SCH (08:03)
[2018-02-24] MEDS: PANTOPRAZOLE SODIUM 40 MG TAB PO SCH (08:03)
[2018-02-24] MEDS: FERROUS SULFATE 325 MG TAB PO SCH (08:03)
[2018-02-24] MEDS: RIVAROXABAN 15 MG TAB PO SCH ×2 (08:03→18:01)
[2018-02-24] MEDS: SENNOSIDES/DOCUSATE SODIUM TAB PO SCH (08:07)
[2018-02-24] MEDS: ACETAMINOPHEN 325 MG TAB PO SCH ×2 (12:18→18:02)
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
--- NOTE | 2018-02-24 15:25 | ASMTDCNOTE ---
Case Management Discharge Discharge Order Complete? Answers: Yes Patient to Obtain Answers: Other Notes: [facility] Medications Transportation Arranged Answers: [facility] Transport will Pick (Date 02/24/2018 07:00 PM & Time) Case Management Transport Answers: Yes Form Complete Faxed Final Orders Answers: Yes Notes: [facility] Agency/Facility Transfer Answers: Yes Report Printed & Faxed to Receiving Agency Family Notified Answers: Yes Notes: Patient to talk with family Discharge Comments Notes: Patient has been discharged to [facility]. [facility] to transport. Date Signed: 02/24/2018 03:24 PM Electronically Signed By:Selena Fedler LCSW
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
[2018-02-24 16:00] VITALS: BP 132/75
[2018-02-24] MEDS: traMADol 50 MG TAB PO PRN (18:01)
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
== END 2018-02-24 18:45 | DRG 957 ==
LOC: F2N 16:07 → UNDODISIN 02-22 11:00
PROVIDERS: ADMIT Surgery; ATTEND Surgery
PROC: 0HQ0XZZ Repair Scalp Skin, External Approach (ICD-10-PCS; 2018-02-14)
PROC: 0QS304Z Reposition Left Pelvic Bone with Internal Fixation Device, Open Approach (ICD-10-PCS; principal; 2018-02-18 10:30)
PROC: 30233N1 Transfusion of Nonautologous Red Blood Cells into Peripheral Vein, Percutaneous Approach (ICD-10-PCS; 2018-02-20)
DX: S32.692A Other specified fracture of left ischium, initial encounter for closed fracture (principal); I26.99 Other pulmonary embolism without acute cor pulmonale; I82.413 Acute embolism and thrombosis of femoral vein, bilateral; S32.592A Other specified fracture of left pubis, initial encounter for closed fracture; S32.19XA Other fracture of sacrum, initial encounter for closed fracture; S22.42XA Multiple fractures of ribs, left side, initial encounter for closed fracture; S36.892A Contusion of other intra-abdominal organs, initial encounter; S06.6X0A Traumatic subarachnoid hemorrhage without loss of consciousness, initial encounter; S01.01XA Laceration without foreign body of scalp, initial encounter; V47.5XXA Car driver injured in collision with fixed or stationary object in traffic accident, initial encounter; Y92.413 State road as the place of occurrence of the external cause; E86.9 Volume depletion, unspecified; E78.00 Pure hypercholesterolemia, unspecified; R40.2413 Glasgow coma scale score 13-15, at hospital admission
CPT/HCPCS: 82435-PO; 82565-PO; 82947-PO; 83605-PO; 84132-PO; 84295-PO; 84484-PO; 84520-PO; 85014-PO; 85520-90; 92523-GN; 96374; 97116-GP; 97161-GP; 97166-GO; 97530-GO; 97530-GP; 97535-GO; C1713; C1769; G0480; J1100; J1170; J1644; J2212; J2270; J2370; J2405; J2704; J3480; P9016; P9041; Q9967